=== PATIENT | female | born 1995 | race Two or more races ===

== ENCOUNTER 2017-09-15 23:35 | Emergency (ER) | payer MEDICAID ==
--- NOTE | 2017-09-15 23:37 | EDPHY ---
H & P HPI/ROS: HPI CHIEF COMPLAINT: Anterior chest wall pain worse when breathing in. Pleuritic pain sharp and stabbing in nature. HISTORY OF PRESENT ILLNESS: Patient is a 21-year-old female she is otherwise healthy no significant medical history does not take any daily medications except for acyclovir she presents emergency room because over the past 24 hours she has noticed some pain in her chest. It is anterior sternal in nature. Worse when she takes deep breath in it is rather sharp. No history of pulmonary embolism or DVT. Just completed control. No cough. Denies fever. Denies vomiting. Does endorse pain worse when she breathes in her lays down. Past Medical History: No medical history Past Surgical History: No surgical history Social History: Daily use of marijuana. Additionally drinks alcohol, on the weekend. [employer] student. Family History: Noncontributory. ROS REVIEW OF SYSTEMS: A comprehensive 10 point review of systems is otherwise negative aside from elements mentioned in the history of present illness. Exam Constitutional appears well nontoxic, triage nursing summary reviewed, vital signs reviewed, awake/alert. Eyes normal conjunctivae and sclera, EOMI, PERRLA. HENT normal inspection, atraumatic, moist mucus membranes, no epistaxis, neck supple/ no meningismus, no raccoon eyes. Respiratory clear to auscultation bilaterally, normal breath sounds, no respiratory distress, no wheezing. Cardiovascular rate normal, regular rhythm, no murmur, no edema, distal pulses normal. Gastrointestinal soft, non-tender, no rebound, no guarding, normal bowel sounds, no distension, no pulsatile mass. Genitourinary no CVA tenderness. Musculoskeletal no midline vertebral tenderness, full range of motion, no calf swelling, no tenderness of extremities, no meningismus, good pulses, neurovascularly intact. Skin pink, warm, & dry, no rash, skin atraumatic. Neurologic awake, alert and oriented x 3, AAOx3, moves all 4 extremities equally, motor intact, sensory intact, CN II-XII intact, normal cerebellar, normal vision, normal speech. Psychiatric normal mood/affect. Heme/Lymph/Immune no lymphadenopathy. Differential Diagnosis: Includes but is not limited to in a particular order, musculoskeletal chest wall pain, pleurisy, pneumonia, pneumothorax, pulmonary embolism, costochondritis Medical Decision Making: Plan for this patient IV establishment with IV Toradol for pain control, chest x-ray two view, EKG, basic blood work D-dimer. Re-evaluate. Re-evaluation: EKG interpretation by me on record in [employer] system. Impression time of EKG 01/03/2053. This is sinus rhythm rate of 87. No acute ischemic change appreciated. Unremarkable EKG. No prolonged intervals. 1249AM: Patient is resting comfortably no complaints. She does feel better. After Toradol. Her EKG is nonischemic. She has a negative troponin negative D- dimer. Her chest x-ray two view is unremarkable for acute cardiopulmonary disease. I do not feel that she needs further evaluation. I do not feel she has a D-dimer. This is most likely musculoskeletal pain. Versus pleurisy. Recommend Tylenol Motrin. And return precautions she understands return emergency room she develops worsening symptoms includes chest pain, shortness of breath, vomiting or fever. ED x-ray chest two view: Negative for acute cardiopulmonary disease. Source: Patient Constitutional: Initial Vital Signs Temperature (C) 37.7 C 09/15/17 23:38 Heart Rate 80 09/15/17 23:38 Respiratory Rate 16 09/15/17 23:38 Blood Pressure 132/78 H 09/15/17 23:38 O2 Sat (%) 97 09/15/17 23:38 O2 Delivery Mode Room Air Allergies/Adverse Reactions: No Known Allergies Allergy (Unverified 09/15/17 23:40) Medical Decision Making - Diagnostics Imaging Results: Imaging Impressions Chest X-Ray 09/15/17 23:47 Impression: Nothing acute radiographically. - Data Points Laboratory Results: Laboratory Results 09/15/17 23:56 09/15/17 23:56 09/15/17 09/15/17 09/15/17 23:56 23:56 23:56 WBC 14.14 10^3/uL H 10^3/uL (3.80-9.50) RBC 4.57 10^6/uL 10^6/uL (4.18-5.33) Hgb 14.2 g/dL g/dL (12.6-16.3) Hct 40.9 % % (38.0-47.0) MCV 89.5 fL fL (81.5-99.8) MCH 31.1 pg pg (27.9-34.1) MCHC 34.7 g/dL g/dL (32.4-36.7) RDW 12.7 % % (11.5-15.2) Plt Count 320 10^3/uL 10^3/uL (150-400) MPV 10.5 fL fL (8.7-11.7) Neut % (Auto) 66.9 % % (39.3-74.2) Lymph % (Auto) 24.5 % % (15.0-45.0) [place] % (Auto) 6.2 % % (4.5-13.0) Eos % (Auto) 1.8 % % (0.6-7.6) Baso % (Auto) 0.2 % L % (0.3-1.7) Nucleat RBC Rel Count 0.0 % % (0.0-0.2) Absolute Neuts (auto) 9.46 10^3/uL H 10^3/uL (1.70-6.50) Absolute Lymphs (auto) 3.46 10^3/uL H 10^3/uL (1.00-3.00) Absolute Monos (auto) 0.88 10^3/uL H 10^3/uL (0.30-0.80) Absolute Eos (auto) 0.25 10^3/uL 10^3/uL (0.03-0.40) Absolute Basos (auto) 0.03 10^3/uL 10^3/uL (0.02-0.10) Absolute Nucleated RBC 0.00 10^3/uL 10^3/uL (0-0.01) Immature Gran % 0.4 % % (0.0-1.1) Immature Gran # 0.06 10^3/uL 10^3/uL (0.00-0.10) D-Dimer 0.37 ug/mLFEU ug/mLFEU (0.00-0.50) Sodium 142 mEq/L mEq/L (134-144) Potassium 3.7 mEq/L mEq/L (3.5-5.2) Chloride 103 mEq/L mEq/L (97-110) Carbon Dioxide 25 mEq/l mEq/l (22-31) Anion Gap 14 mEq/L mEq/L (8-16) BUN 8 mg/dL mg/dL (7-23) Creatinine 0.6 mg/dL mg/dL (0.6-1.0) Estimated GFR > 60 Glucose 99 mg/dL mg/dL (70-100) Calcium 9.8 mg/dL mg/dL (8.5-10.4) Troponin I < 0.012 ng/mL ng/mL (0.000-0.034) Medications Given: Discontinued Medications Sodium Chloride (Ns) 1,000 mls @ 0 mls/hr IV EDNOW ONE; Wide Open PRN Reason: Protocol Stop: 09/15/17 23:48 Last Admin: 09/16/17 00:14 Dose: 1,000 mls Ketorolac Tromethamine (Toradol) 15 mg IVP EDNOW ONE Stop: 09/15/17 23:48 Last Admin: 09/16/17 00:15 Dose: 15 mg Departure - Departure Disposition: Home, Routine, Self-Care Clinical Impression: Pleurisy Condition: Good Instructions: Pleurisy (ED) Additional Instructions: 1. Return emergency room if develops worsening pain fever shortness of breath questions or concerns. 2. I do recommend you take Tylenol Motrin you can alternate these every 4-6 hours for pain. Referrals: MONSE HICKEY [Other] - As per Instructions
[2017-09-15 23:40] VITALS: RESP 16
[2017-09-15] MEDS ORDERED: NS 1,000 ML IV ONE ×2 (23:47)
[2017-09-15] MEDS ORDERED: KETOROLAC 15 MG/1 ML SDV IVP ONE ×2 (23:47)
--- NOTE | 2017-09-15 23:58 | CPEKG ---
Heart Rate: 87 RR Interval: 690 P-R Interval: 140 QRSD Interval: 82 QT Interval: 368 QTC Interval: 443 P [place]: 81 QRS [place]: 64 T Wave [place]: 46 EKG Severity - NORMAL ECG - EKG Impression: SINUS RHYTHM Electronically Signed By: Sabrina Perez 18-Sep-2017 08:00:06
[2017-09-16 00:11] LABS: PLATELET COUNT 320 10^3/uL (150-400)
[2017-09-16 01:03] VITALS: BP 122/74; PULSE 66; TEMP 98.6; O2SAT 100
== END 2017-09-16 01:03 | disposition home or self-care (01) ==
DX: R09.1 Pleurisy (principal); E86.9 Volume depletion, unspecified
CPT/HCPCS: 96374; J1885

== ENCOUNTER 2018-12-11 18:54 | Emergency (ER) | payer MEDICAID ==
--- NOTE | 2018-12-11 19:02 | EDPHY ---
H & P Stated Complaint: etoh tuesday fell impacting l side of head/mccray dizzyness Time Seen by Provider: 12/11/18 19:01 HPI/ROS: CHIEF COMPLAINT: Persistent headache following head injury HISTORY OF PRESENT ILLNESS: The patient presents to the ED with complaints of a severe persistent the left temporal headache following a head injury that occurred 2 days ago. The patient was intoxicated and reportedly fell striking her head. There is not unknown loss of consciousness. Since that time she has had persistent nausea. She he complains of photophobia. She does have some pain in her right trapezius and left shoulder which she describes as being muscular in nature. She denies any acute numbness or weakness. She denies any additional traumatic injury. REVIEW OF SYSTEMS: A comprehensive 10 point review of systems is otherwise negative aside from elements mentioned in the history of present illness. Source: Patient Exam Limitations: No limitations - Personal History LMP (Females 10-55): Now Current Tetanus Diphtheria and Acellular Pertussis (TDAP): Yes - Medical/Surgical History Hx Asthma: No Hx Chronic Respiratory Disease: No Hx Diabetes: No Hx Cardiac Disease: No Hx Renal Disease: No Hx Cirrhosis: No Hx Alcoholism: No Hx HIV/AIDS: No Hx Splenectomy or Spleen Trauma: No Other PMH: N/A - Social History Smoking Status: Current some day smoker - Physical Exam Exam: General Appearance: Alert, no distress Head: Tenderness to palpation left temporal bone, no hematoma, no deformity Eyes: Pupils equal, round, reactive ENT, Mouth: No hemotympanum, no oral trauma Neck: Nontender, trachea midline Respiratory: No chest wall tender, no subcutaneous air, lungs clear bilaterally Cardiovascular: Regular rate and rhythm Abdomen: Abdomen is soft and nontender, pelvis stable Skin: No lacerations, No abrasion Back: No midline T/L/S pain Extremities: Nontender, full range of motion Neurological: A&Ox3, normal motor function, normal sensory exam Constitutional: Initial Vital Signs Temperature (C) 36.9 C 12/11/18 18:58 Heart Rate 68 12/11/18 18:58 Respiratory Rate 17 12/11/18 18:58 Blood Pressure 120/88 H 12/11/18 18:58 O2 Sat (%) 98 12/11/18 18:58 O2 Delivery Mode Room Air Allergies/Adverse Reactions: No Known Allergies Allergy (Verified 12/11/18 18:58) Home Medications: Medication Instructions Recorded NK [No Known Home Meds] 12/11/18 Medical Decision Making - Diagnostics Imaging Results: CT head without contrast: Images reviewed by myself and discussed with radiologist Dr. Espinoza. Impression negative for intracranial trauma ED Course/Re-evaluation: Given the patient's complaint of a severe left temporal headache two days after a head injury secondary to alcohol intoxication a CT scan was performed to assess for intracranial hemorrhage or skull fracture. Fortunately the results of the CT scan demonstrate no evidence of a ICH or skull fracture. The patient does have symptoms consistent with a moderate concussion. The patient is not anticoagulated. The remainder of her injuries appear to be musculoskeletal in nature. Patient will be discharged home with customary concussion aftercare instructions. She is given the contact number of our on-call concussion specialist Dr. Smith for any ongoing symptoms. Differential Diagnosis: Differential diagnosis considered includes concussion, skull fracture, intracranial hemorrhage Departure - Departure Disposition: Home, Routine, Self-Care Clinical Impression: Concussion Condition: Good Instructions: Concussion (ED) Additional Instructions: 1. Take Ibuprofen or Motrin 600 mg by mouth three times a day. 2. Concussion aftercare as directed 3. Please follow up with [facility] for any ongoing and symptoms of a concussion. You have also been given the number of our local concussion specialist Dr. Smith who would be happy to see you in follow-up. Referrals: Steph Smith MD [Medical Doctor] - As per Instructions
[2018-12-11 19:41] VITALS: BP 108/65
== END 2018-12-11 19:39 | disposition home or self-care (01) ==
DX: S06.0X0A Concussion without loss of consciousness, initial encounter (principal); W01.198A Fall on same level from slipping, tripping and stumbling with subsequent striking against other object, initial encounter; Y92.9 Unspecified place or not applicable; Y93.9 Activity, unspecified; Y99.9 Unspecified external cause status